=== PATIENT | male | born 1955 | race Native Hawaiian/Other Pacific Islander ===

== ENCOUNTER 2019-01-25 08:10 | Day surgery (SDC) | payer BC ==
[~2019-01-25] VITALS: Ht 170.2 cm; Wt 56.2 kg
== END 2019-01-25 09:45 | disposition home or self-care (01) ==
LOC: OR 08:10
PROC: 3E0R33Z Introduction of Anti-inflammatory into Spinal Canal, Percutaneous Approach (ICD-10-PCS; principal; 2019-01-25)
PROC: B01BYZZ Fluoroscopy of Spinal Cord using Other Contrast (ICD-10-PCS; 2019-01-25)
DX: M50.123 Cervical disc disorder at C6-C7 level with radiculopathy (principal)
CPT/HCPCS: J1020